=== PATIENT | female | born 1995 | race Caucasian/White ===

== ENCOUNTER 2017-05-14 10:41 | Emergency (ER) | payer BC ==
[2017-05-14 11:05] VITALS: BP 102/55
--- NOTE | 2017-05-14 11:21 | UC ---
Complaint Female HPI - HPI Summary HPI Summary: Here w/ urinary frequency and pain starting this morning. Denies taking any pyridium/Azo recently. [ End ] - History Of Current Complaint Chief Complaint: UCGU Stated Complaint: URINARY COMPLAINT Time Seen by Provider: 05/14/17 11:02 Hx Last Menstrual Period: IUD ?: No Onset/Duration: Sudden Onset Timing: Constant Character: Burning - Allergies/Home Medications Allergies/Adverse Reactions: Allergies Allergy/AdvReac Type Severity Reaction Status Date / Time No Known Allergies Allergy Verified 05/14/17 10:55 Home Medications: Home Medications Levonorgestrel (Iud) [Kyleena IUD] 05/14/17 [History] PMH/Surg Hx/FS Hx/Imm Hx Previously Healthy: Yes Other GI/ History: previous UTI 1 year ago and had kidney infections when a child - Surgical History Surgical History: None - Social History Lives: With Family Alcohol Use: Rare Substance Use Type: None Smoking Status (MU): Never Smoked Tobacco - Immunization History Most Recent Influenza Vaccination: 2015 Most Recent Tetanus Shot: UTD Most Recent Pneumonia Vaccination: N/A Vaccination Up to Date: Yes Review of Systems Constitutional: Negative Skin: Negative Eyes: Negative ENT: Negative Respiratory: Negative Cardiovascular: Negative Gastrointestinal: Negative Genitourinary: Dysuria, Frequency, Urgency Motor: Negative Neurovascular: Negative Musculoskeletal: Negative Neurological: Negative Psychological: Negative All Other Systems Reviewed And Are Negative: Yes Physical Exam Triage Information Reviewed: Yes Appearance: Well-Appearing, No Pain Distress, Well-Nourished Vital Signs: Initial Vital Signs Temp 98 F 05/14/17 10:57 Pulse 90 05/14/17 10:57 Resp 16 05/14/17 10:57 BP 102/55 05/14/17 10:57 Pulse Ox 100 05/14/17 10:57 Vital Signs Reviewed: Yes Eye Exam: Normal ENT Exam: Normal Dental Exam: Normal Neck exam: Normal Neck: Positive: 1 Respiratory Exam: Normal Cardiovascular Exam: Normal Abdominal Exam: Normal Abdomen Description: Negative: CVA Tenderness (R), CVA Tenderness (L) Musculoskeletal Exam: Normal Neurological Exam: Normal Psychological Exam: Normal Skin Exam: Normal Complaint Female Dx - Differential Dx/Diagnosis Differential Diagnosis/HQI/PQRI: Urinary Tract Infection Provider Diagnoses: UTI Discharge - Discharge Plan Condition: Good Disposition: HOME Prescriptions: Phenazopyridine 200 mg (NF) [Pyridium 200 MG tab] 200 mg PO TID #6 tab Sulfamethox/Trimethoprim DS* [Bactrim DS 800/160 TAB*] 1 tab PO BID #10 tab Patient Education Materials: Urinary Tract Infection in Women (ED) Referrals: Leann Carrero MD [Primary Care Provider] - 3 Days
== END 2017-05-14 11:50 | disposition home or self-care (01) ==
LOC: UCCORT 10:41
DX: N39.0 Urinary tract infection, site not specified (principal); Z87.440 Personal history of urinary (tract) infections
CPT/HCPCS: 81003; 87077; 87086; 87186; 99212; G0463

== ENCOUNTER 2017-12-06 22:42 | Emergency (ER) | payer BC ==
[2017-12-06] MEDS ORDERED: Ibuprofen TAB* 800 MG PO ONE (23:49)
[2017-12-07] MEDS ORDERED: Dexamethasone TAB* 4 MG PO ONE (01:11)
[2017-12-07] MEDS ORDERED: Acetaminophen TAB* 325 MG PO ONE (01:11)
[2017-12-07] MEDS ORDERED: Benzonatate CAP* 100 MG PO ONE (01:11)
--- NOTE | 2017-12-07 01:16 | ED ---
HPI Febrile Illness - HPI Summary HPI Summary: 22-year-old female presents with fever since yesterday. She admits to cough and shortness of breath. She denies any chest pain. She denies any nausea or vomiting. She has not had any decreased appetite. She took one dose of Tylenol 8 hours ago. She admits to a sore throat. She admits to sinus congestion. She states that no one else is sick. She has no medical conditions. She denies any pain with urination. She denies any headache or neck stiffness. She admits to fatigue. - History of Current Complaint Chief Complaint: EDFluSymptoms Time Seen by Provider: 12/06/17 23:41 Hx Last Menstrual Period: "like, two weeks ago, I think" Pain Intensity: 8 - Allergy/Home Medications Allergies/Adverse Reactions: Allergies Allergy/AdvReac Type Severity Reaction Status Date / Time No Known Allergies Allergy Verified 05/14/17 10:55 PMH/Surg Hx/FS Hx/Imm Hx Endocrine/Hematology History: Denies: Hx Diabetes, Hx Thyroid Disease Respiratory History: Denies: Hx Asthma - Immunization History Immunizations Up to Date: Yes Infectious Disease History: No Infectious Disease History: Denies: History Other Infectious Disease - mom w/history of MRSA in wound, Traveled Outside the [place] in Last 30 Days - Family History Known Family History: Negative: Cardiac Disease - Social History Alcohol Use: None Substance Use Type: Reports: None Smoking Status (MU): Never Smoked Tobacco Review of Systems Positive: Fever Negative: Chest Pain Positive: Shortness Of Breath, Cough Negative: Abdominal Pain All Other Systems Reviewed And Are Negative: Yes Physical Exam Triage Information Reviewed: Yes Vital Signs On Initial Exam: Initial Vitals Temp Pulse Resp BP Pulse Ox 104 F 108 16 109/74 98 12/06/17 22:44 12/06/17 22:44 12/06/17 22:44 12/06/17 22:44 12/06/17 22:44 Vital Signs Reviewed: Yes Appearance: Positive: Well-Appearing Skin: Positive: Warm, Dry Head/Face: Positive: Normal Head/Face Inspection Eyes: Positive: Normal, EOMI, JAQUELINE, Conjunctiva Clear ENT: Positive: Normal ENT inspection, Pharynx normal, TMs normal Respiratory/Lung Sounds: Positive: Clear to Auscultation, Breath Sounds Present Cardiovascular: Positive: Normal, RRR Abdomen Description: Positive: Nontender, Soft Bowel Sounds: Positive: Present Musculoskeletal: Positive: Normal Neurological: Positive: Normal Psychiatric: Positive: Normal Diagnostics - Vital Signs Vital Signs Temp Pulse Resp BP Pulse Ox 12/06/17 22:44 104 F 108 16 109/74 98 - Laboratory Lab Results: Lab Results 12/07/17 12/07/17 Range/Units 00:46 00:47 Influenza A (Rapid) Positive H (Negative) Influenza B (Rapid) Negative (Negative) Group A Strep Rapid Negative (Negative) Lab Statement: Any lab studies that have been ordered have been reviewed, and results considered in the medical decision making process. Course/Dx - Course Course Of Treatment: 22-year-old female presents with fever since yesterday. She admits to cough and shortness of breath. She denies any chest pain. She denies any nausea or vomiting. She has not had any decreased appetite. She took one dose of Tylenol 8 hours ago. She admits to a sore throat. She admits to sinus congestion. She states that no one else is sick. She has no medical conditions. She denies any pain with urination. She denies any headache or neck stiffness. On exam lungs clear to auscultation. Abdomen soft nontender. Flu A+. Patient declined Tamiflu. We will give Tessalon and Decadron for sore throat. Patient understands and agrees with plan. - Febrile Illness Differential Diagnoses: Pneumonia, Viremia, Other: - influenza - Diagnoses Provider Diagnoses: Influenza A Discharge - Discharge Plan Condition: Good Disposition: HOME Prescriptions: Benzonatate CAP* [Tessalon 100 MG CAP*] 100 mg PO TID #21 cap Dexamethasone TAB* [Decadron TAB*] 4 mg PO DAILY #4 tab Patient Education Materials: Influenza (ED) Referrals: Leann Carrero MD [Primary Care Provider] - Additional Instructions: Use Tessalon three times a day for cough Take steroid once a day for 5 days Use saline in the nose for nasal congestion Use humidifier or place warm bowls of water around the room Take tyenlol or ibuprofen every 6 hours for fever Return to ED if develop any new or worsening symptoms
[2017-12-07 01:49] VITALS: BP 112/63
== END 2017-12-07 01:46 | disposition home or self-care (01) ==
LOC: ED 22:42
DX: J11.1 Influenza due to unidentified influenza virus with other respiratory manifestations (principal)
CPT/HCPCS: 87502; 87651; 99282; A9270-GY; J8540

== ENCOUNTER 2018-05-26 18:33 | Emergency (ER) | payer BC ==
[2018-05-26 19:34] VITALS: BP 110/63
--- NOTE | 2018-05-26 19:49 | UC ---
Complaint Female HPI - HPI Summary HPI Summary: pt c/o sudden onset of urinary frequency and urgency. Pt also has concern for STD exposure - History Of Current Complaint Chief Complaint: UCGU Stated Complaint: URINARY Time Seen by Provider: 05/26/18 19:27 Hx Obtained From: Patient Hx Last Menstrual Period: 05/19/18 ?: No Onset/Duration: Sudden Onset, Lasting Hours, Still Present Timing: Constant Severity Initially: Mild Severity Currently: Mild Pain Intensity: 0 Aggravating Factor(s): Urination Alleviating Factor(s): Nothing Associated Signs And Symptoms: Positive: Negative - Risk Factors Ectopic Risk Factor: IUD Use Ovarian Torsion Risk Factor: Reproductive Age - Allergies/Home Medications Allergies/Adverse Reactions: Allergies Allergy/AdvReac Type Severity Reaction Status Date / Time No Known Allergies Allergy Verified 05/26/18 19:34 PMH/Surg Hx/FS Hx/Imm Hx Previously Healthy: Yes - Surgical History Surgical History: None - Family History Known Family History: Negative: Cardiac Disease - Social History Lives: With Family Alcohol Use: None Substance Use Type: None Smoking Status (MU): Never Smoked Tobacco Have You Smoked in the Last Year: No - Immunization History Most Recent Influenza Vaccination: Not the Season Most Recent Tetanus Shot: UTD Most Recent Pneumonia Vaccination: N/A Vaccination Up to Date: Yes Review of Systems Constitutional: Negative Skin: Negative Eyes: Negative ENT: Negative Respiratory: Negative Cardiovascular: Negative Gastrointestinal: Negative Genitourinary: Frequency, Urgency Motor: Negative Neurovascular: Negative Musculoskeletal: Negative Neurological: Negative Psychological: Negative Is Patient Immunocompromised?: No All Other Systems Reviewed And Are Negative: Yes Physical Exam Triage Information Reviewed: Yes Appearance: Well-Appearing Vital Signs: Initial Vital Signs Temp 98.2 F 05/26/18 19:29 Pulse 82 05/26/18 19:29 Resp 17 05/26/18 19:29 BP 110/63 05/26/18 19:29 Pulse Ox 100 05/26/18 19:29 Vital Signs Reviewed: Yes Eye Exam: Normal ENT Exam: Normal Dental Exam: Normal Neck exam: Normal Respiratory Exam: Normal Cardiovascular Exam: Normal Abdominal Exam: Normal Abdomen Description: Positive: Nontender Musculoskeletal Exam: Normal Neurological Exam: Normal Psychological Exam: Normal Skin Exam: Normal Complaint Female Dx - Differential Dx/Diagnosis Differential Diagnosis/HQI/PQRI: Urinary Tract Infection Provider Diagnoses: UTI Discharge - Sign-Out/Discharge Documenting (check all that apply): Patient Departure - Discharge Plan Condition: Stable Disposition: HOME Prescriptions: Cephalexin CAP* [Keflex 500 CAP*] 500 mg PO Q12H #14 cap Phenazopyridine TAB* [Pyridium 100 mg TAB*] 100 mg PO Q8H #3 tab Patient Education Materials: Urinary Tract Infection in Women (ED) Referrals: Leann Carrero MD [Primary Care Provider] - If Needed - Billing Disposition and Condition Condition: STABLE Disposition: Home
== END 2018-05-26 19:57 | disposition home or self-care (01) ==
LOC: UCCORT 18:33
DX: N39.0 Urinary tract infection, site not specified (principal)
CPT/HCPCS: 81003; 87077; 87086; 87186; 87491; 87591; 99212; G0463

== ENCOUNTER 2018-08-21 08:20 | Emergency (ER) | payer BC ==
[2018-08-21 08:50] VITALS: BP 112/64
== END 2018-08-21 09:39 | disposition left against medical advice (07) ==
LOC: UCCORT 08:20
DX: N89.8 Other specified noninflammatory disorders of vagina (principal); Z53.21 Procedure and treatment not carried out due to patient leaving prior to being seen by health care provider

== ENCOUNTER 2019-06-06 09:29 | Emergency (ER) | payer BC ==
[2019-06-06 09:55] VITALS: BP 110/70
--- NOTE | 2019-06-06 10:08 | UC ---
General HPI - HPI Summary HPI Summary: per triage, Eye discharge (crusted over this morning), congestion, sneezing, facial pressure, sore throat worse at night, painful swallowing, intermittent hoarse voice, and cough for one week. No known fever, "but I have had cold sweats". Has tried ibuprofen and Zyrtec without improvement. - History of Current Complaint Chief Complaint: UCRespiratory Stated Complaint: ST,CONGESTION Time Seen by Provider: 06/06/19 10:01 Hx Obtained From: Patient Hx Last Menstrual Period: Kyleena IUD Onset/Duration: Gradual Onset Timing: Constant Pain Intensity: 5 Associated Signs & Symptoms: Negative: Chest Pain, SOB - Allergy/Home Medications Allergies/Adverse Reactions: Allergies Allergy/AdvReac Type Severity Reaction Status Date / Time No Known Allergies Allergy Verified 06/06/19 09:51 PMH/Surg Hx/FS Hx/Imm Hx Previously Healthy: Yes - Surgical History Surgical History: None - Family History Known Family History: Negative: Cardiac Disease - Social History Alcohol Use: Weekly Substance Use Type: None Smoking Status (MU): Never Smoked Tobacco Have You Smoked in the Last Year: No - Immunization History Most Recent Influenza Vaccination: Not the Season Most Recent Tetanus Shot: UTD Most Recent Pneumonia Vaccination: N/A Vaccination Up to Date: Yes Review of Systems All Other Systems Reviewed And Are Negative: No Constitutional: Negative: Fever Eyes: Positive: Drainage ENT: Positive: Sore Throat, Sinus Congestion Respiratory: Positive: Cough. Negative: Shortness Of Breath Cardiovascular: Negative: Palpitations, Chest Pain Physical Exam Triage Information Reviewed: Yes Appearance: Well-Appearing Vital Signs: Initial Vital Signs Temp 98 F 06/06/19 09:50 Pulse 76 06/06/19 09:50 Resp 18 06/06/19 09:50 BP 110/70 06/06/19 09:50 Pulse Ox 100 06/06/19 09:50 Vital Signs Reviewed: Yes Eyes: Positive: Conjunctiva Clear ENT: Positive: Pharyngeal erythema - mild with tiny vesicles, Nasal congestion, TMs normal, Uvula midline. Negative: Nasal drainage, Trismus, Muffled voice, Hoarse voice Neck: Positive: Supple, Tenderness @ - peritonsilar nodes, Enlarged Nodes @ - peritonsilar Respiratory: Positive: Lungs clear, Normal breath sounds, No respiratory distress Cardiovascular: Positive: RRR, No Murmur Musculoskeletal: Positive: ROM Intact Neurological: Positive: Alert Psychological: Positive: Age Appropriate Behavior Skin Exam: Normal Skin: Negative: Rashes Diagnostics - Laboratory Lab Results: rapid strep=negative Course/Dx - Course Course Of Treatment: pt would like to r/o strep throat - Differential Dx - Multi-Symptom Differential Diagnoses: Other - RAPID STREP=NEG. ANTIBIOTIC NOT INDICATED. - Diagnoses Provider Diagnosis: URI (upper respiratory infection) Discharge - Sign-Out/Discharge Documenting (check all that apply): Patient Departure All imaging exams completed and their final reports reviewed: No Studies - Discharge Plan Condition: Stable Disposition: HOME Patient Education Materials: Upper Respiratory Infection (DC) Referrals: Leann Carrero MD [Primary Care Provider] - Additional Instructions: FOLLOW UP IF NOT BETTER IN 3-5 DAYS OR SOONER IF WORSE. - Billing Disposition and Condition Condition: STABLE Disposition: Home
== END 2019-06-06 10:22 | disposition home or self-care (01) ==
LOC: UCCORT 09:29
DX: J06.9 Acute upper respiratory infection, unspecified (principal)
CPT/HCPCS: 87651; 99211; G0463

== ENCOUNTER 2019-09-16 07:19 | Emergency (ER) | payer BC ==
--- OUTSIDE RECORDS SUMMARY | 2019-09-16 07:26 | XMS REPORT | Continuity of Care Document ---
:1995 External Reference #:[id number] Author Name TRISTON Jean Baptiste Address [address] [place] [id number] Problems Active Problems Provider Date Asthma Onset: 06/14/2019 Inactive Problems Anxiety Onset: 06/14/2019 Inactive: 06/14/2019 Social History Type Date Description Comments Sex Unknown Allergies, Adverse Reactions, Alerts Description No Known Drug Allergies Medications Active Medications SIG Qnty Indications Ordering Date Provider Angelcarolinaena Intrauterine Unknown 06/14/2019 19.5mg IUD Ventolin HFA 2 every 4 hours 1units Unknown 06/14/2019 Inhalation 108(90Base) mcg/Act Aerosol Sertraline HCL 1 daily Oral 30tabs Unknown 06/14/2019 25mg Tablets History Medications Hydroxyzine HCL 1 twice daily Oral 60tabs Unknown 06/14/2019 - 2018 25mg Tablets Immunizations Description No Information Available Vital Signs Date Vital Result Comment 09/09/2019 10:23am BP Systolic 106 mmHg BP Diastolic 58 mmHg Heart Rate 103 /min Body Temperature 98.3 F O2 % BldC Oximetry 98 % 06/14/2019 11:28am BP Systolic 102 mmHg Height 66.00 inches 5'6.00" Weight 117.00 lb Heart Rate 91 /min Body Temperature 98.3 F O2 % BldC Oximetry 99 % BMI (Body Mass Index) 18.88 kg/m2 Results Description No Information Available Procedures Description No Information Available Medical Devices Description No Information Available Encounters Type Date Location Provider Dx Diagnosis Office Visit 09/09/2019 10:15a [facility] TRISTON Jean Baptiste F43.23 Adjustment disorder with mixed anxiety and depressed mood Assessments Date Code Description Provider 09/09/2019 F43.23 Adjustment disorder with mixed anxiety and TRISTON Jean Baptiste depressed mood Plan of Treatment 09/09/2019 - TRISTON Jean BaptisteF43.23 Adjustment disorder with mixed anxiety and depressed moodComments:discussed that sertraline is managing depression and anxiety but is at a lower dose that recommendedfor treatmentwill increase daily dosage to 50 mg PO QD continue regular exercise consider counselingfor symptoms if needed return in 3 months for mood follow up and as needed will give influenza today Functional Status Description No Information Available Mental Status Description No Information Available Referrals Description No Information Available
[2019-09-16 07:37] VITALS: BP 103/62
--- NOTE | 2019-09-16 07:38 | UC ---
Respiratory Complaint HPI - HPI Summary HPI Summary: 24 yo female with 4-5 day history of fever /chills (first 3 days), headache, myalgias, runny nose, n/v/d. Feels as though she is improving but needs note for work still with n/v/d but it is tapering off - History of Current Complaint Chief Complaint: UCGeneralIllness Stated Complaint: VOMITING Time Seen by Provider: 09/16/19 07:37 Hx Obtained From: Patient Hx Last Menstrual Period: 09/09/19 Onset/Duration: Gradual Onset, Lasting Days Timing: Constant Severity Initially: Severe Severity Currently: Mild Pain Intensity: 0 Pain Scale Used: 0-10 Numeric Character: Cough: Nonproductive Aggravating Factors: Nothing Alleviating Factors: Nothing Associated Signs And Symptoms: Positive: Fever - initially, Chills - initially, Nasal Congestion. Negative: Dyspnea, Pleuritic Chest Pain, Wheezing, Hemoptysis , Dizziness, Calf Pain, Calf Swelling, Edema, URI, Hoarseness - Allergies/Home Medications Allergies/Adverse Reactions: Allergies Allergy/AdvReac Type Severity Reaction Status Date / Time No Known Allergies Allergy Verified 09/16/19 07:27 Home Medications: Home Medications Acetaminophen TAB* [Tylenol TAB*] 650 mg PO Q4H PRN 09/16/19 [History Confirmed 09/16/19] Albuterol HFA INHALER* [Ventolin HFA Inhaler*] 2 puff INH Q4H PRN 09/16/19 [ History Confirmed 09/16/19] D-Methorphan/PE/Acetaminophen [Vicks Dayquil Cold & Flu] 1 cap PO PRN 09/16/19 [ History] Sertraline* [Zoloft*] 50 mg PO DAILY 09/16/19 [History Confirmed 09/16/19] PMH/Surg Hx/FS Hx/Imm Hx Previously Healthy: Yes - Surgical History Surgical History: None - Family History Known Family History: Positive: Hypertension, Non-Contributory Negative: Cardiac Disease - Social History Alcohol Use: Occasionally Substance Use Type: None Smoking Status (MU): Never Smoked Tobacco Have You Smoked in the Last Year: No - Immunization History Most Recent Influenza Vaccination: Not the 2015/2015 Season Most Recent Tetanus Shot: UTD Most Recent Pneumonia Vaccination: N/A Vaccination Up to Date: Yes Review of Systems All Other Systems Reviewed And Are Negative: Yes Constitutional: Positive: Fever - none x 48 hours, Chills - none x 48 hr, Fatigue Skin: Positive: Negative Eyes: Positive: Negative ENT: Positive: Nasal Discharge Respiratory: Positive: Cough Cardiovascular: Positive: Negative Gastrointestinal: Positive: Vomiting, Diarrhea, Nausea. Negative: Abdominal Pain Genitourinary: Positive: Negative Motor: Positive: Negative Neurovascular: Positive: Negative Musculoskeletal: Positive: Myalgia - resolved Neurological: Positive: Headache - resolved Physical Exam Triage Information Reviewed: Yes Appearance: Well-Appearing, No Pain Distress, Well-Nourished Vital Signs: Initial Vital Signs Temp 97.8 F 09/16/19 07:31 Pulse 82 09/16/19 07:31 Resp 15 09/16/19 07:31 BP 103/62 09/16/19 07:31 Pulse Ox 99 09/16/19 07:31 Vital Signs Reviewed: Yes Eyes: Positive: Conjunctiva Clear ENT: Positive: Hearing grossly normal, Pharynx normal, Nasal congestion, TMs normal, Uvula midline. Negative: Nasal drainage, Tonsillar swelling, Tonsillar exudate, Trismus, Muffled voice, Hoarse voice, Sinus tenderness Dental Exam: Normal Neck: Positive: Supple, Nontender, No Lymphadenopathy Respiratory: Positive: Lungs clear, Normal breath sounds, No respiratory distress, No accessory muscle use Cardiovascular: Positive: RRR, No Murmur Abdomen Description: Positive: Nontender, No Organomegaly, Soft. Negative: CVA Tenderness (R), CVA Tenderness (L) Bowel Sounds: Positive: Present Musculoskeletal: Positive: ROM Intact Neurological: Positive: Alert Psychological Exam: Normal Skin Exam: Normal Respiratory Course/Dx - Differential Dx/Diagnosis Provider Diagnosis: Acute viral syndrome Discharge ED - Sign-Out/Discharge Documenting (check all that apply): Patient Departure All imaging exams completed and their final reports reviewed: No Studies - Discharge Plan Condition: Stable Disposition: AGAINST MEDICAL ADVICE Patient Education Materials: Viral Syndrome (ED) Referrals: Maura Bullock MD [Primary Care Provider] - - Billing Disposition and Condition Condition: STABLE Disposition: Against Medical Advice
[2019-09-16] MEDS ORDERED: Ondansetron ODT TAB* 4 MG PO ONE (07:47)
== END 2019-09-16 07:56 | disposition left against medical advice (07) ==
LOC: UCCORT 07:19
DX: R11.2 Nausea with vomiting, unspecified (principal); R09.89 Other specified symptoms and signs involving the circulatory and respiratory systems; R05 Cough; R53.83 Other fatigue; R19.7 Diarrhea, unspecified
CPT/HCPCS: 99212; A9270-GY; G0463

== ENCOUNTER 2019-09-28 07:04 | Emergency (ER) | payer BC ==
[2019-09-28 07:20] VITALS: BP 118/60
[2019-09-28 07:41] LABS: Influenza A Molecular NEGATIVE (Negative); Influenza B Molecular NEGATIVE (Negative)
--- NOTE | 2019-09-28 07:54 | UC ---
Throat Pain/Nasal Rodriguez HPI - HPI Summary HPI Summary: 24-year-old female comes in with a chief complaint of right ear pain headache rhinorrhea and feeling ill. For the last 2 weeks patient's had upper respiratory tract infection symptoms but overall they had been improving. In the last day she's been feeling worse. She also ended up vomiting. She took an ibuprofen and then vomited. - History of Current Complaint Chief Complaint: UCRespiratory Stated Complaint: VOMITTING,RT EAR COMPLAINT,CONGESTION Time Seen by Provider: 09/28/19 07:47 Hx Last Menstrual Period: 3 weeks ago Pain Intensity: 3 - Allergies/Home Medications Allergies/Adverse Reactions: Allergies Allergy/AdvReac Type Severity Reaction Status Date / Time No Known Allergies Allergy Verified 09/28/19 07:14 PMH/Surg Hx/FS Hx/Imm Hx Previously Healthy: Yes - Surgical History Surgical History: None - Family History Known Family History: Positive: Hypertension, Non-Contributory Negative: Cardiac Disease - Social History Alcohol Use: Occasionally Substance Use Type: None Smoking Status (MU): Current Some Day Smoker Type: Cigars Have You Smoked in the Last Year: No - Immunization History Most Recent Influenza Vaccination: Not the 2014/2015 Season Most Recent Tetanus Shot: UTD Most Recent Pneumonia Vaccination: N/A Vaccination Up to Date: Yes Review of Systems All Other Systems Reviewed And Are Negative: Yes Constitutional: Positive: Other - SEE HPI Skin: Positive: Negative Eyes: Positive: Negative ENT: Positive: Ear Ache, Nasal Discharge, Sinus Congestion Respiratory: Positive: Cough Cardiovascular: Positive: Negative Gastrointestinal: Positive: Vomiting, Nausea Motor: Positive: Negative Neurovascular: Positive: Negative Musculoskeletal: Positive: Negative Neurological: Positive: Headache Psychological: Positive: Negative Is Patient Immunocompromised?: No Physical Exam Triage Information Reviewed: Yes Appearance: No Pain Distress, Well-Nourished, Ill-Appearing - MILD Vital Signs: Initial Vital Signs Temp 98.3 F 09/28/19 07:16 Pulse 117 09/28/19 07:16 Resp 20 09/28/19 07:16 BP 118/60 09/28/19 07:16 Pulse Ox 100 09/28/19 07:16 Vital Signs Reviewed: Yes Eye Exam: Normal Eyes: Positive: Conjunctiva Clear ENT: Positive: Pharyngeal erythema, Nasal congestion, Nasal drainage, TM bulging - RT, TM dull - RT Neck: Positive: Supple Respiratory: Positive: Lungs clear, Normal breath sounds, No respiratory distress Cardiovascular: Positive: RRR Musculoskeletal: Positive: Strength Intact, ROM Intact Neurological: Positive: Alert Psychological: Positive: Normal Response To Family, Age Appropriate Behavior Skin Exam: Normal Throat Pain/Nasal Course/Dx - Course Course Of Treatment: DISCUSSED VIRAL VERSES BACTERIAL INFECTIONS AND THE ROLE OF ANTIBIOTICS. THE PATIENT PREFERS TO BE ON ANTIBIOTICS AT THIS TIME. - Differential Dx/Diagnosis Provider Diagnosis: Right serous otitis media, Upper respiratory infection Discharge ED - Sign-Out/Discharge Documenting (check all that apply): Patient Departure All imaging exams completed and their final reports reviewed: No Studies - Discharge Plan Condition: Stable Disposition: HOME Prescriptions: Amoxicillin PO (*) [Amoxicillin 875 MG (*)] 875 mg PO BID #20 tab Patient Education Materials: Upper Respiratory Infection (ED), Serous Otitis Media (ED) Forms: *Work Release Referrals: Maura Bullock MD [Primary Care Provider] - Additional Instructions: FOLLOW UP WITH YOUR DOCTOR IF NOT COMPLETELY IMPROVED. GET REEVALUATED SOONER IF NOT IMPROVING OR WORSE OR ANY QUESTIONS OR CONCERNS. - Billing Disposition and Condition Condition: STABLE Disposition: Home
== END 2019-09-28 08:01 | disposition home or self-care (01) ==
LOC: UCCORT 07:04
DX: J06.9 Acute upper respiratory infection, unspecified (principal); H65.91 Unspecified nonsuppurative otitis media, right ear; J34.89 Other specified disorders of nose and nasal sinuses; H92.01 Otalgia, right ear; F17.290 Nicotine dependence, other tobacco product, uncomplicated; R11.2 Nausea with vomiting, unspecified
CPT/HCPCS: 87651; 99212; G0463

== ENCOUNTER 2019-10-25 19:29 | Emergency (ER) | payer BC ==
[2019-10-25 20:05] VITALS: BP 108/64
--- NOTE | 2019-10-25 20:15 | UC ---
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 Since then, she has recurrent vaginal discharge without itch, and is concerned about having increase in bilateral low abdominal cramping. Same sexual partner x 2+ years, with last intercourse being about 3 weeks ago, without pain. Reports monogamous relationship. IUD in place x 3 years without any recent increase in spotting. - History Of Current Complaint Chief Complaint: UCGU Stated Complaint: PERSONAL Time Seen by Provider: 10/25/19 20:14 Hx Obtained From: Patient Hx Last Menstrual Period: 10/10/19 Onset/Duration: Gradual Onset, Lasting Days Timing: Constant Severity Initially: Mild Severity Currently: Mild Pain Intensity: 3 Character: Cramping Aggravating Factor(s): Nothing Alleviating Factor(s): Nothing Associated Signs And Symptoms: Positive: Vaginal Discharge - Risk Factors Ectopic Risk Factor: IUD Use Ovarian Torsion Risk Factor: Negative - Allergies/Home Medications Allergies/Adverse Reactions: Allergies Allergy/AdvReac Type Severity Reaction Status Date / Time No Known Allergies Allergy Verified 10/25/19 20:05 PMH/Surg Hx/FS Hx/Imm Hx Previously Healthy: Yes - Surgical History Surgical History: None - Family History Known Family History: Positive: None - Parents living and well, Hypertension, Non-Contributory Negative: Cardiac Disease - Social History Occupation: Employed Full-time Lives: With Family Alcohol Use: Occasionally Substance Use Type: None Smoking Status (MU): Current Some Day Smoker Type: Cigars Have You Smoked in the Last Year: No - Immunization History Most Recent Influenza Vaccination: Not the 2014/2015 Season Most Recent Tetanus Shot: UTD Most Recent Pneumonia Vaccination: N/A Vaccination Up to Date: Yes Review of Systems All Other Systems Reviewed And Are Negative: Yes Constitutional: Positive: Negative Skin: Positive: Negative Eyes: Positive: Negative ENT: Positive: Negative Respiratory: Positive: Negative Cardiovascular: Positive: Negative Gastrointestinal: Positive: Negative Genitourinary: Positive: Vaginal/Penile Discharge. Negative: Dysuria, Frequency , Urgency Motor: Positive: Negative Neurovascular: Positive: Negative Musculoskeletal: Positive: Negative Neurological: Positive: Negative Psychological: Positive: Negative Is Patient Immunocompromised?: No Physical Exam Triage Information Reviewed: Yes Appearance: Well-Appearing, No Pain Distress Vital Signs: Initial Vital Signs Temp 99.7 F 12/17/19 20:01 Pulse 96 10/25/19 20:01 Resp 16 10/25/19 20:01 BP 108/64 10/25/19 20:01 Pulse Ox 100 10/25/19 20:01 ENT: Positive: Pharynx normal Neck: Positive: Supple, Nontender, No Lymphadenopathy Respiratory: Positive: Lungs clear, Normal breath sounds Cardiovascular: Positive: RRR, No Murmur Abdomen Description: Positive: Nontender, No Organomegaly, Soft. Negative: Guarding, Hepatomegaly Pelvic Exam: Positive: External Exam Normal, No Cerv. Motion Tender, Discharge - thick discharge, white to yellow, Tender Adnexa - painful right adnexa with adnexal enlargement.. Negative: Tender Uterus, Ulcers Musculoskeletal Exam: Normal Neurological Exam: Normal Psychological Exam: Normal Skin Exam: Normal Diagnostics - Laboratory Lab Results: UA negative Complaint Female Dx - Course Course Of Treatment: Discussed: her pain is mild and she prefers not to treat on speculation, but to await results. Clinical exam with right adnexal enlargement and tenderness consistent with right ovarian cyst. Information will be sent to [facility], and Keith will notify them of possible right ovarian cyst and call to see if ultrasound scan can be arranged without a follow up evaluation, based on today's findings. Urine test is negative. - Differential Dx/Diagnosis Differential Diagnosis/HQI/PQRI: Cervicitis, Ectopic, Sexually Transmitted Disease, Urinary Tract Infection Provider Diagnosis: Adnexal tenderness, right Discharge ED - Sign-Out/Discharge Documenting (check all that apply): Patient Departure All imaging exams completed and their final reports reviewed: No Studies - Discharge Plan Condition: Stable Disposition: HOME Patient Education Materials: Ovarian Cyst (ED) Referrals: Maura Bullock MD [Primary Care Provider] - Additional Instructions: Today's exam does not establish a diagnosis. Swabs have been done for yeast, bacterial vaginosis, Trichomonas and Chlamydia and gonorrhea. The results will be available between tomorrow afternoon and Thursday. You can call with reports, but any positive results will be called. Your exam shows possible enlargement of the right ovary, and an ovarian cyst could be the cause of your pain. An ultrasound scan is needed to evaluate this, and you will contact [facility] tomorrow to work out the best way to arrange this. If you have a sudden increase in pain, please go to the emergency room for evaluation. - Billing Disposition and Condition Condition: STABLE Disposition: Home
[2019-10-27 12:53] LABS: Chlamydia trachomatis NAA Negative (Negative); Neisseria gonorrhoeae (GC) NAA Negative (Negative)
--- NOTE | 2019-10-28 11:05 | UC ---
- Progress Note Progress Note: Reviewed notes. Reviewed results. Ancillaries as reviewed nad. However, given nature of sx, RN will call pt to check on her and review results. She should seek medical attention (PCP or ED) if worse or new problems. Course/Dx - Diagnoses Provider Diagnoses: Adnexal tenderness, right Discharge ED - Sign-Out/Discharge Documenting (check all that apply): Post-Discharge Follow Up All imaging exams completed and their final reports reviewed: No Studies - Discharge Plan Condition: Stable Disposition: HOME Patient Education Materials: Ovarian Cyst (ED) Referrals: Maura Bullock MD [Primary Care Provider] - Additional Instructions: Today's exam does not establish a diagnosis. Swabs have been done for yeast, bacterial vaginosis, Trichomonas and Chlamydia and gonorrhea. The results will be available between tomorrow afternoon and Thursday. You can call with reports, but any positive results will be called. Your exam shows possible enlargement of the right ovary, and an ovarian cyst could be the cause of your pain. An ultrasound scan is needed to evaluate this, and you will contact [facility] tomorrow to work out the best way to arrange this. If you have a sudden increase in pain, please go to the emergency room for evaluation. - Billing Disposition and Condition Condition: STABLE Disposition: Home
== END 2019-10-25 21:07 | disposition home or self-care (01) ==
LOC: UCCORT 19:29
DX: N83.8 Other noninflammatory disorders of ovary, fallopian tube and broad ligament (principal); F17.290 Nicotine dependence, other tobacco product, uncomplicated
CPT/HCPCS: 81003; 84702; 87480; 87491; 87510; 87591; 87660; 99211; G0463

== ENCOUNTER 2019-12-15 09:10 | Emergency (ER) | payer BC ==
[2019-12-15 09:45] VITALS: BP 104/65
[2019-12-15 10:15] LABS: Influenza A Molecular Negative (Negative); Influenza B Molecular Negative (Negative)
--- NOTE | 2019-12-15 10:18 | UC ---
FLU HPI - HPI Summary HPI Summary: 24 y/o female presents to the urgent care c/o Difficulty sleeping due to chills and sweats two nights ago; no fever. Stayed home from work yesterday with headache, intermittently decreased appetite, nausea with vomiting, myalgias, chills, and sweats. Denies congestion and cough. Continued myalgias and "cold sweats" today. Does not feel like when she had Influenza last year and didn't get the vaccine this season. Her father has PMHX of DM type II and told he is concerned about "low blood sugar". She request Influenza test and glucose checked. LMP: 12/09/2019 and her period is just ending. She Also has IUD and declines test. Pt had 2 episodes of vomiting. Pt denies fever, rash, neck pain, Hx of tick bites, recent travel outside the country, SOB, cough, wheezing, chest pain, abdominal pain, diarrhea or constipation or urinary symptoms. She has drinking fluids, but has decrease appetite. She is UTD w/ all vaccines for her age. - History of Current Complaint Chief Complaint: UCGeneralIllness Stated Complaint: CHILLS,LOW SUGAR Time Seen by Provider: 12/15/19 10:05 Hx Obtained From: Patient Hx Last Menstrual Period: 12/09/2019 (Kyleena IUD) ?: No Onset/Duration: Gradual Onset, Lasting Days - 2 days, Still Present Severity Currently: Mild Severity Initially: Mild Pain Intensity: 2 - body aches Pain Scale Used: 0-10 Numeric Associated Signs & Symptoms: Positive: Myalgia, Nasal Congestion - clear, Headache, Vomiting. Negative: Fever, Cough, Diarrhea Related Hx: Possible Flu/Infectious Exposure - Risk Factors Influenza Risk Factors: Negative - Allergy/Home Medications Allergies/Adverse Reactions: Allergies Allergy/AdvReac Type Severity Reaction Status Date / Time No Known Allergies Allergy Verified 12/15/19 09:41 PMH/Surg Hx/FS Hx/Imm Hx Previously Healthy: Yes - Pt denies PMHX - Surgical History Surgical History: None - Family History Known Family History: Positive: Hypertension, Diabetes, Non-Contributory Negative: Cardiac Disease - Social History Occupation: Student Lives: With Family Alcohol Use: Occasionally Substance Use Type: None Smoking Status (MU): Current Some Day Smoker Type: Cigars Have You Smoked in the Last Year: No - Immunization History Most Recent Influenza Vaccination: Not the 2014/2015 Season Most Recent Tetanus Shot: UTD Most Recent Pneumonia Vaccination: N/A Vaccination Up to Date: Yes Review of Systems All Other Systems Reviewed And Are Negative: Yes Constitutional: Positive: Fatigue, Other - body aches Skin: Positive: Negative Eyes: Positive: Negative ENT: Positive: Nasal Discharge - clear, Sinus Congestion Respiratory: Positive: Negative Cardiovascular: Positive: Negative Gastrointestinal: Positive: Vomiting, Nausea. Negative: Abdominal Pain, Diarrhea Genitourinary: Positive: Negative Motor: Positive: Negative Neurovascular: Positive: Negative Musculoskeletal: Positive: Negative Neurological: Positive: Headache - mild Psychological: Positive: Negative Is Patient Immunocompromised?: No Physical Exam - Summary Physical Exam Summary: VITAL SIGNS: Reviewed. GENERAL: Patient is a well developed and nourished female who is sitting comfortably in the examining table. Patient is not in any acute respiratory distress. HEAD AND FACE: No signs of trauma. No ecchymosis, hematomas or skull depressions. No sinus tenderness. EYES: PERRLA, EOMI x 2, No injected conjunctiva, no nystagmus. No photophobia. EARS: Hearing grossly intact. Ear canals and tympanic membranes are within normal limits. MOUTH: Positive pharynx with mild erythema, no exudates, No B/L tonsillar enlargement , no exudate. Uvula in midline. edematous nasal mucosa w/ clear nasal discharge, clear PND NECK: Supple, trachea is midline, Positive anterior cervical lymphadenopathy, no JVD, no carotid bruit, no c-spine tenderness, neck with full ROM. No meningeal signs, no Kernig's or brudzinskis signs. CHEST: Symmetric, no tenderness at palpation LUNGS: Clear to auscultation bilaterally. No wheezing or crackles. CVS: Regular rate and rhythm, S1 and S2 present, no murmurs or gallops appreciated. ABDOMEN: Soft, non-tender. No signs of distention. No rebound no guarding, and no masses palpated. Bowel sounds are normal. EXTREMITIES: FROM in all major joints, no edema, no cyanosis or clubbing. NEURO: Alert and oriented x 3. No acute neurological deficits. Pt follows commands. SKIN: Dry and warm Triage Information Reviewed: Yes Vital Signs: Initial Vital Signs Temp 98.7 F 12/15/19 09:37 Pulse 98 12/15/19 09:37 Resp 18 12/15/19 09:37 BP 104/65 12/15/19 09:37 Pulse Ox 99 12/15/19 09:37 Flu Course/Dx - Course Course Of Treatment: 24 y/o female presents to the urgent care c/o Difficulty sleeping due to chills and sweats two nights ago; no fever. Stayed home from work yesterday with headache, intermittently decreased appetite, nausea with vomiting, myalgias, chills, and sweats. Denies congestion and cough. Continued myalgias and "cold sweats" today. Does not feel like when she had Influenza last year and didn't get the vaccine this season. Her father has PMHX of DM type II and told he is concerned about "low blood sugar". She request Influenza test and glucose checked. LMP: 12/09/2019 and her period is just ending. She Also has IUD and declines test. Pt had 2 episodes of vomiting. Pt denies fever, rash, neck pain, Hx of tick bites, recent travel outside the country, SOB, cough, wheezing, chest pain, abdominal pain, diarrhea or constipation or urinary symptoms. She has drinking fluids, but has decrease appetite. She is UTD w/ all vaccines for her age. Hx obtained. Pt is hemodynamically stable, A&OX3, viral syndrome on examination. Rapid influenza A&B: negative. FSmg/dl. Pt Rx Zofran PO for Nausea and vomiting, advised to increase fluid intake, eat soft meals, rest. However if symptoms worsen and abdominal pain develops to go Immediately to the ER for further management. Pt explained D/C instructions. Pt understood and agreed w/ plan of care. Pt left the clinic ambulating, A&OX3 - Differential Dx/Diagnosis Differential Diagnosis/HQI/PQRI: Bronchitis, Influenza, Upper Respiratory Infection Provider Diagnosis: Viral syndrome, Vomiting Discharge ED - Sign-Out/Discharge Documenting (check all that apply): Patient Departure - d/c home All imaging exams completed and their final reports reviewed: No Studies - Discharge Plan Condition: Stable Disposition: HOME Prescriptions: Ondansetron ODT TAB* [Zofran 4 MG Odt TAB*] 4 mg PO Q8H PRN #9 tab.odt PRN Reason: Nausea/Vomiting Patient Education Materials: Viral Syndrome (ED) Forms: *Work Release Referrals: Juani Jordan DO [Primary Care Provider] - 2 Days Additional Instructions: 1- Please take Zofran PO as directed if vomiting returns, Increase hydration and eat small portions of food and rest 2-Please continue taking Tylenol PO q6-8hrs prn as instructed after meals to alleviate fever, and sore throat. Increase fluid intake, eat well, rest and avoid strenuous exercise 3-If symptoms do not improve or worsen please return to the urgent care or f/u with your PCP in 2 days for further evaluation and treatment. 4- Rapid Influenza A&B: negative, Glucose: 94mg/dl - Billing Disposition and Condition Condition: STABLE Disposition: Home - Attestation Statements Provider Attestation: I was available for consult. This patient was seen by the LÁZARO. The patient was not presented to, seen by, or examined by me. -Ana Lilai
== END 2019-12-15 10:34 | disposition home or self-care (01) ==
LOC: UCCORT 09:10
DX: B34.9 Viral infection, unspecified (principal); R11.2 Nausea with vomiting, unspecified; R51 Headache; M79.10 Myalgia, unspecified site; R61 Generalized hyperhidrosis; R63.8 Other symptoms and signs concerning food and fluid intake; F17.290 Nicotine dependence, other tobacco product, uncomplicated
CPT/HCPCS: 99212; G0463

== ENCOUNTER 2020-01-09 08:56 | Emergency (ER) | payer BC ==
--- OUTSIDE RECORDS SUMMARY | 2020-01-09 09:14 | XMS REPORT | Continuity of Care Document ---
:1995 External Reference #:[id number] Author Name Juani Jordan DO Address [address] [place] [address] Problems Active Problems Provider Date Asthma Onset: 06/14/2019 Social History Type Date Description Comments Sex Unknown Allergies, Adverse Reactions, Alerts Description No Known Drug Allergies Medications Active Medications SIG Qnty Indications Ordering Date Provider Sertraline HCL 1 tab by mouth every 90tabs Juani 09/09/2019 50mg day as directed DO Nikki Tablets Kyleena Intrauterine Unknown 06/14/2019 19.5mg IUD Ventolin HFA 2 every 4 hours 1units Unknown 06/14/2019 Inhalation 108(90Base) mcg/Act Aerosol Sertraline HCL 1 daily Oral 30tabs Unknown 06/14/2019 25mg Tablets Immunizations CPT Code Status Date Vaccine Lot # [id number] Given 09/09/2019 Flu < 65 years [id number] Vital Signs Date Vital Result Comment 09/09/2019 [...] BMI (Body Mass Index) 18.88 kg/m2 Results Test Acquired Date Facility Test Result H/L Range Note Rapid Influenza 12/15/2019 [facility] Influenza A Negative Negative A & B Molecular [address] [place] [address] [phone] Influenza B Molecular Negative Negative 1 Laboratory test 12/15/2019 [facility] Point of 94 mg/dL Normal 70-100 2, [address] [address] [phone] 1 Aerodynamicist: [id number] 2 MD to be notified 3 Aerodynamicist: [id number] Procedures Description No Information Available Medical Devices Description No Information Available Encounters Type Date Location Provider Dx Diagnosis Office Visit 09/09/2019 10:15a [facility] TRISTON Jean Baptiste F43.23 Adjustment disorder with mixed anxiety and depressed mood Z23 Encounter for immunization Z13.31 Encounter for screening for depression Assessments Date Code Description Provider 09/09/2019 F43.23 Adjustment disorder with mixed anxiety and TRISTON Jean Baptiste depressed mood 09/09/2019 Z23 Encounter for immunization [facility] Jean Baptiste 09/09/2019 Z13.31 Encounter for screening for depression [facility] Jean Baptiste Plan of Treatment 09/09/2019 - TRISTON Jean BaptisteF43.23 Adjustment disorder with mixed anxiety and depressed moodComments:discussed that sertraline is managing depression and anxiety but is at a lower dose that recommendedfor treatmentwill increase daily dosage to 50 mg PO QD continue regular exercise consider counselingfor symptoms if needed return in 3 months for mood follow up and as needed will give influenza [id number] Encounter for [id number] Encounter for screening for depressionAllNew Medication:Sertraline HCL 50 mg - 1 tab by mouth every day as directed Functional Status Description No Information Available Mental Status Description No Information Available Referrals Description No Information Available
--- OUTSIDE RECORDS SUMMARY | 2020-01-09 09:14 | XMS REPORT | Continuity of Care Document ---
:1995 External Reference #:[id number] Author Name Juani Jordan DO Address [address] [place] [address] Problems Active Problems Provider Date Asthma Onset: [...] CPT Code Status Date Vaccine Lot # [id number] Given 09/09/2019 Flu < 65 years [id number] Vital Signs Date Vital Result Comment 09/09/2019 [...] Result H/L Range Note Rapid Influenza 12/15/2019 [facility] Influenza A Negative Negative A & B Molecular [address] [place] [address] [phone] Influenza B Molecular Negative Negative 1 Laboratory test 12/15/2019 [facility] Point of 94 mg/dL Normal 70-100 2, [address] [place] [address] [phone] 1 Natural Resource Specialist: LOBO 2 MD to be notified 3 Natural Resource Specialist: [id number] Procedures Description No Information Available Medical Devices [...] up and as needed will give influenza [id number] Encounter for [id number] Encounter for screening for depressionAllNew Medication:Sertraline HCL 50 mg - 1 tab by mouth every day as directed Functional Status Description No Information Available Mental Status Description No Information Available Referrals Description No Information Available
--- NOTE | 2020-01-09 11:21 | ED ---
Complex/Multi-Sys Presentation - HPI Summary HPI Summary: This patient is a 24 y/o female, with no PMHx, [facility] [place]/o low blood sugar for the past several months. Patient reports she does not have hx of DM. She states for months every time she gets sick she has noticed her sugar is around 50s or 70s. Her symptoms includes drenched in sweat, nausea and vomiting, dizziness. Patient notes her normal blood sugar is 130. LMP: 2 weeks ago. Denies tobacco, alcohol, or drug use. Home Medications Medication Instructions Recorded Confirmed Type Levonorgestrel (Iud) [Kyleena IUD] 17.5 mcg VAGINAL ONCE 05/14/17 12/15/19 History Acetaminophen TAB* [Tylenol TAB*] 650 mg PO Q4H PRN 09/16/19 12/15/19 History Albuterol HFA INHALER* [Ventolin 2 puff INH Q4H PRN 09/16/19 12/15/19 History HFA Inhaler*] Sertraline* [Zoloft*] 50 mg PO DAILY 09/16/19 12/15/19 History Ondansetron ODT TAB* [Zofran 4 MG 4 mg PO Q8H PRN #9 tab.odt 12/15/19 Rx Odt TAB*] - History Of Current Complaint Chief Complaint: EDDiabeticProb Time Seen by Provider: 01/09/20 11:10 Hx Obtained From: Patient Onset/Duration: Lasting Weeks, Still Present Timing: Weeks Severity Currently: Moderate Aggravating Factor(s): nothing Alleviating Factor(s): nothing Associated Signs And Symptoms: Positive: Dizziness, Nausea, Vomiting, Other - POSITIVE: diaphoresis. Negative: Fever - Allergies/Home Medications Allergies/Adverse Reactions: Allergies Allergy/AdvReac Type Severity Reaction Status Date / Time No Known Allergies Allergy Verified 01/09/20 09:01 Home Medications: Home Medications Levonorgestrel (Iud) [Kyleena IUD] 17.5 mcg VAGINAL ONCE 05/14/17 [History Confirmed 12/15/19] Acetaminophen TAB* [Tylenol TAB*] 650 mg PO Q4H PRN 09/16/19 [History Confirmed 12/15/19] Albuterol HFA INHALER* [Ventolin HFA Inhaler*] 2 puff INH Q4H PRN 09/16/19 [ History Confirmed 12/15/19] Sertraline* [Zoloft*] 50 mg PO DAILY 09/16/19 [History Confirmed 12/15/19] Ondansetron ODT TAB* [Zofran 4 MG Odt TAB*] 4 mg PO Q8H PRN #9 tab.odt 12/15/19 [Rx] PMH/Surg Hx/FS Hx/Imm Hx Endocrine/Hematology History: Denies: Hx Diabetes, Hx Thyroid Disease Respiratory History: Denies: Hx Asthma - Surgical History Surgical History: None Infectious Disease History: No Infectious Disease History: Denies: History Other Infectious Disease - mom w/history of MRSA in wound, Traveled Outside the [place] in Last 30 Days - Family History Known Family History: Positive: None - Parents living and well, Hypertension, Diabetes Negative: Cardiac Disease - Social History Alcohol Use: Occasionally Substance Use Type: Reports: None Smoking Status (MU): Current Some Day Smoker Type: Cigars Have You Smoked in the Last Year: No Review of Systems Positive: Skin Diaphoresis. Negative: Fever Positive: Vomiting, Nausea Neurological/Mental Status: Other - POSITIVE: dizziness All Other Systems Reviewed And Are Negative: Yes Physical Exam - Summary Physical Exam Summary: VITAL SIGNS: Reviewed. GENERAL: Patient is a well-developed and nourished female. Patient is not in any acute respiratory distress. HEAD AND FACE: No signs of trauma. No ecchymosis, hematomas or skull depressions. No sinus tenderness. EYES: PERRLA, EOMI x 2, No injected conjunctiva, no nystagmus. EARS: Hearing grossly intact. Ear canals and tympanic membranes are within normal limits. MOUTH: Oropharynx within normal limits. NECK: Supple, trachea is midline, no adenopathy, no JVD, no carotid bruit, no c- spine tenderness, neck with full ROM. CHEST: Symmetric, no tenderness at palpation LUNGS: Clear to auscultation bilaterally. No wheezing or crackles. CVS: Regular rate and rhythm, S1 and S2 present, no murmurs or gallops appreciated. ABDOMEN: Soft, non-tender. No signs of distention. No rebound, no guarding, and no masses palpated. Bowel sounds are normal. EXTREMITIES: FROM in all major joints, no edema, no cyanosis or clubbing. NEURO: Alert and oriented x 3. No acute neurological deficits. Speech is normal and follows commands. SKIN: Dry and warm Triage Information Reviewed: Yes Vital Signs On Initial Exam: Initial Vitals Temp Pulse Resp BP Pulse Ox 98.0 F 99 16 120/73 98 01/09/20 08:57 01/09/20 08:57 01/09/20 08:57 01/09/20 08:57 01/09/20 08:57 Vital Signs Reviewed: Yes Procedures - Sedation Patient Received Moderate/Deep Sedation with Procedure: No Diagnostics - Vital Signs Vital Signs Temp Pulse Resp BP Pulse Ox 01/09/20 10:51 98.5 F 92 16 98 01/09/20 08:57 98.0 F 99 16 120/73 98 - Laboratory Result Diagrams: 01/09/20 11:19 01/09/20 11:19 Lab Statement: Any lab studies that have been ordered have been reviewed, and results considered in the medical decision making process. Re-Evaluation - Re-Evaluation First Eval Re-Evaluation Time: 12:03 Comment: Reviewed results with patient and mother. Patient will be discharged home with follow up from PCP. Complex Multi-Symp Course/Dx Assessment/Plan: This patient is a 24 y/o female, with no PMHx, presenting to [facility] c/o low blood sugar for the past several months. Patient reports she does not have hx of DM. She states for months every time she gets sick she has noticed her sugar is around 50s or 70s. Her symptoms includes drenched in sweat , nausea and vomiting, dizziness. Patient notes her normal blood sugar is 130. LMP: 2 weeks ago. Denies tobacco, alcohol, or drug use. Blood test w/o a significant abnormality except for WBCs of 10.9, absolute neutrophils of 9, ABG with a pH of 7.41, and CRP of 13.8. Glucose in the ED is 81 which is normal. The blood pressure is also normal. I discussed all the findings and test results with the patient. Patient was instructed to return to the emergency room immediately if any of the symptoms return worsens. Plan of care was discussed with the patient and understands and agrees. All questions were answered at patient satisfaction. There were no further complaints or concerns. Lung exam before discharge: CTA B/L. Good air exchange. No wheezing or crackles heard. CVS: S1 and S2 present. No murmurs appreciated. Patient is alert and oriented x 3. Patient is hemodynamically stable. Patient will be discharged home with follow up from her PCP in the next 2-3 days. - Diagnoses Provider Diagnoses: Hypoglycemia Discharge ED - Sign-Out/Discharge Documenting (check all that apply): Patient Departure - Discharge home - Discharge Plan Condition: Stable Disposition: HOME Patient Education Materials: Non-diabetic Hypoglycemia (ED) Referrals: Juani Jordan DO [Primary Care Provider] - Additional Instructions: FOLLOW UP WITH YOUR PRIMARY CARE PROVIDER IN 2-3 DAYS. RETURN TO THE ED FOR ANY NEW OR WORSENING SYMPTOMS. - Billing Disposition and Condition Condition: STABLE Disposition: Home - Attestation Statements Document Initiated by Matt: Yes Documenting Scribe: Elin Teague Provider For Whom Matt is Documenting (Include Credential): Ignacio Skinner MD Scribe Attestation: Elin Romero, scribed for Ignacio Skinner MD on 01/09/20 at 2045. Scribe Documentation Reviewed: Yes Provider Attestation: The documentation as recorded by the Elin marx accurately reflects the service I personally performed and the decisions made by Ignacio chacon MD Status of Scribe Document: Viewed
[2020-01-09 11:32] LABS: ABS Eosinophils 0.1 10^3/ul (0-0.6); ABS Lymphocytes 1.1 10^3/ul (1.0-4.8); ABS Monocytes 0.7 10^3/ul (0-0.8); Eosinophil % 0.6 %; Hematocrit 40 % (35-47); Hemoglobin 13.8 g/dL (12.0-16.0); Lymphocyte % 9.9 %; Mean Corpuscular HGB Conc 34 g/dL (31-36); Mean Corpuscular Hemoglobin 31 pg (27-31); Mean Corpuscular Volume 89 fL (80-97); Mean Platelet Volume 8.5 fL (7.4-10.4); Platelet Count 258 10^3/uL (150-450); Red Cell Distribution Width 13 % (10-15); White Blood Count 10.9 10^3/uL (3.5-10.8)
[2020-01-09 11:55] LABS: Albumin 4.6 g/dL (3.2-5.2); Albumin/Globulin Ratio 1.4 (1-3); BUN/Creatinine Ratio 13.4 (8-20); C Reactive Protein 13.85 mg/L (<8.01); Calcium 9.6 mg/dL (8.6-10.3); EGFR African American 133.2 (>60); EGFR Non-African American 110.1 (>60); Globulin 3.3 g/dL (2-4); Potassium 3.7 mmol/L (3.5-5.0); Total Bilirubin 0.4 mg/dL (0.2-1.0); Total Protein 7.9 g/dL (6.4-8.9)
[2020-01-09 12:22] VITALS: BP 119/67
== END 2020-01-09 12:21 | disposition home or self-care (01) ==
LOC: ED 08:56
DX: E16.2 Hypoglycemia, unspecified (principal); R42 Dizziness and giddiness; R11.2 Nausea with vomiting, unspecified; Z72.0 Tobacco use; Z97.5 Presence of (intrauterine) contraceptive device
CPT/HCPCS: 36415; 80053; 82803; 85025; 86140; 99282

== ENCOUNTER 2021-01-21 18:33 | Inpatient (IN) ==
[2021-01-21 19:23] LABS: Urine Appearance Clear; Urine Bilirubin Negative (Negative); Urine Blood Negative (Negative); Urine Color Colorless; Urine Glucose Negative (Negative); Urine Ketones Negative (Negative); Urine Nitrite Negative (Negative); Urine Protein Negative (Negative); Urine Specific Gravity 1.001 (1.010-1.030); Urine Urobilinogen Negative (Negative)
[2021-01-21 19:31] LABS: ABS Eosinophils 0.1 10^3/ul (0-0.6); ABS Lymphocytes 1.4 10^3/ul (1.0-4.8); ABS Monocytes 0.7 10^3/ul (0-0.8); ABS Neutrophils 9.5 10^3/ul (1.5-7.7); Eosinophil % 0.7 %; Hematocrit 39 % (35-47); Hemoglobin 13.7 g/dL (12.0-16.0); Lymphocyte % 12.1 %; Mean Corpuscular HGB Conc 35 g/dL (31-36); Mean Corpuscular Hemoglobin 31 pg (27-31); Mean Corpuscular Volume 88 fL (80-97); Platelet Count 263 10^3/uL (150-450); Red Blood Count 4.46 10^6 /uL (3.70-4.87); Red Cell Distribution Width 13 % (10-15); White Blood Count 11.8 10^3/uL (3.5-10.8)
[2021-01-21 19:35] LABS: Urine Benzodiazepine Screen None Detected (None Detect); Urine Cannabinoids Screen Presumptive Positive (None Detect); Urine Opiates Screen None Detected (None Detect)
[2021-01-21 19:42] LABS: ALT 24 U/L (7-52); AST 24 U/L (13-39); Albumin 4.6 g/dL (3.2-5.2); Albumin/Globulin Ratio 1.4 (1-3); Alkaline Phosphatase 66 U/L (34-104); Anion Gap 10 mmol/L (2-11); BUN/Creatinine Ratio 12.5 (8-20); Blood Urea Nitrogen 11 mg/dL (6-24); CO2 Carbon Dioxide 25 mmol/L (22-32); Calcium 9.7 mg/dL (8.6-10.3); Chloride 106 mmol/L (101-111); EGFR African American 96.4 (>60); EGFR Non-African American 79.6 (>60); Globulin 3.2 g/dL (2-4); Glucose 104 mg/dL (70-100); Potassium 3.8 mmol/L (3.5-5.0); Sodium 141 mmol/L (135-145); Total Protein 7.8 g/dL (6.4-8.9)
[2021-01-21 19:48] LABS: HCG Pregnancy 1.07 mIU/mL
[2021-01-21 20:24] LABS: Acetaminophen < 15 mcg/mL; Alcohol, S 39 mg/dL (<10); Salicylate < 2.50 mg/dL (<30)
[2021-01-21 20:26] LABS: TSH Ultra Thyroid Stim Horm 2.77 mcIU/mL (0.34-5.60)
[2021-01-22] MEDS ORDERED: Al Hydrox/Mg Hydrox/Simet LIQ 30 ML UDC PO PRN (06:34)
[2021-01-22] MEDS ORDERED: Albuterol HFA INHALER 8 gm MDI INH PRN (11:16)
[2021-01-22] MEDS: Vitamin THERAPEUTIC TAB PO SCH ×2 (11:41→12:07)
[2021-01-22] MEDS: Nicotine GUM 2MG FRUIT FLAVOR PO PRN (16:54)
[2021-01-23] MEDS: Vitamin THERAPEUTIC TAB PO SCH (10:16)
[2021-01-23] MEDS: Nicotine GUM 2MG FRUIT FLAVOR PO PRN ×2 (10:17→16:25)
[2021-01-24] MEDS: Vitamin THERAPEUTIC TAB PO SCH (14:01)
[2021-01-24] MEDS: Nicotine GUM 2MG FRUIT FLAVOR PO PRN ×2 (14:01→17:31)
[2021-01-25 08:06] LABS: HDL Cholesterol 49.3 mg/dL
[2021-01-25] MEDS: Nicotine GUM 2MG FRUIT FLAVOR PO PRN ×3 (10:06→15:56)
[2021-01-25] MEDS: Vitamin THERAPEUTIC TAB PO SCH (10:06)
[2021-01-26] MEDS: Nicotine GUM 2MG FRUIT FLAVOR PO PRN ×3 (08:46→19:58)
[2021-01-26] MEDS: Vitamin THERAPEUTIC TAB PO SCH (08:46)
[2021-01-26] MEDS ORDERED: diPHENhydraMINE 25 mg TAB PO ONE ×2 (17:25→21:00)
[2021-01-27] MEDS: Vitamin THERAPEUTIC TAB PO SCH (08:52)
[2021-01-27] MEDS: Nicotine GUM 2MG FRUIT FLAVOR PO PRN ×2 (09:14→16:03)
[2021-01-27] MEDS: diPHENhydraMINE 25 mg TAB PO SCH (22:28)
[2021-01-28] MEDS: Vitamin THERAPEUTIC TAB PO SCH (09:07)
[2021-01-28] MEDS: Nicotine GUM 2MG FRUIT FLAVOR PO PRN ×2 (11:08→16:08)
[2021-01-28] MEDS: diPHENhydraMINE 25 mg TAB PO SCH (22:28)
[2021-01-29] MEDS: Vitamin THERAPEUTIC TAB PO SCH (08:26)
[2021-01-29] MEDS: Nicotine GUM 2MG FRUIT FLAVOR PO PRN ×3 (09:12→18:50)
[2021-01-29] MEDS: diPHENhydraMINE 25 mg TAB PO SCH (21:47)
[2021-01-30 08:18] VITALS: BP 101/65
[2021-01-30] MEDS: Vitamin THERAPEUTIC TAB PO SCH (08:26)
== END 2021-01-30 16:35 | disposition home or self-care (01) | DRG 753 ==
LOC: ED 18:33 → BSU 23:20
PROVIDERS: ADMIT Psychiatry & Neurology Psychiatry; ATTEND Psychiatry & Neurology Psychiatry